=== PATIENT | female | born 1980 | race Caucasian/White ===

== ENCOUNTER 2018-08-09 18:13 | Emergency (ER) | payer MEDICARE, MEDICAID ==
--- NOTE | 2018-08-09 20:30 | RAD ---
RADIOGRAPH RIGHT KNEE 4 VIEWS: 08/09/18 HISTORY: 38-year-old female with persistent posttraumatic pain after fall four days ago. COMPARISON: 07/14/17. FINDINGS: There is a new or greater amount of edema throughout the subcutaneous soft tissues superficial to the patellar tendon and anterior to the proximal tibial metadiaphysis. There is edema in Hoffa's fat pad , new or greater than on the prior study. There is a small to moderate sized joint effusion. No fract ure or dislocation. No high grade DJD. IMPRESSION: 1. No fracture. 2. Anterior subcutaneous soft tissue edema. 3. Edema in Hoffa's fat pad and joint effusion. 4. No fracture. POS: [facility]
== END 2018-08-09 20:03 | disposition home or self-care (01) ==
LOC: SCSER 18:13
DX: S80.01XA Contusion of right knee, initial encounter (principal); M25.461 Effusion, right knee; I10 Essential (primary) hypertension; Z79.899 Other long term (current) drug therapy; W18.30XA Fall on same level, unspecified, initial encounter

== ENCOUNTER 2018-11-27 09:42 | Outpatient (CLI) | payer MEDICARE, MEDICAID ==
--- NOTE | 2018-11-27 12:33 | ULT ---
LEFT BREAST ULTRASOUND: HISTORY: Exam is performed to follow up abnormal mammographic finding at 12 o'clock, in the retroareolar regio n. FINDINGS: The left breast is evaluated in the central retroareolar region. There is a solid, circumscribed, sl ightly hypoechoic mass, which measures 0.7 x 1.0 x 1.0 cm in size, in the 12 o'clock retroareolar reg ion, corresponding to the mammographic area of concern. 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 Findings were discussed with the patient and with the patient's mother in regard to either performing a biopsy or doing six month short-term surveillance, and the agreement was to perform six month surv eillance. IMPRESSION: BI-RADS category 3-Probably benign findings. 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 Six-month follow-up left breast ultrasound is recommended. At one year, I would ramón mmend obtaining a bilateral mammogram, as well as a left breast ultrasound. POS: OFF
== END 2018-11-27 09:43 | disposition home or self-care (01) ==
LOC: BICMAMMO 09:42
PROVIDERS: ATTEND Family Medicine
DX: N64.4 Mastodynia (principal); N63.42 Unspecified lump in left breast, subareolar; Z80.3 Family history of malignant neoplasm of breast
CPT/HCPCS: 76642; 77066; G0279

== ENCOUNTER 2019-05-30 16:13 | Emergency (ER) | payer MEDICARE, MEDICAID ==
[2019-05-30 16:54] LABS: BHCG - Serum Negative (NEGATIVE); Pregs Control Background? CLEAR/WHITE (CLR/WHITE); Pregs Control Bar Appear? YES (CONTROL BAR)
[2019-05-30 16:59] LABS: Eosinophils 2 % (0-10); Hemoglobin 12.9 g/dL (12.0-16.0); Lymphocytes 35 % (21-51); MDiff Complete? YES; Mean Corpuscular HGB CONC 33.8 g/dL (32.0-36.0); Mean Corpuscular Hemoglobin 27.4 pg (27.0-31.0); Mean Corpuscular Volume 81.2 fL (78.0-98.0); Monocytes 5 % (0-10); Neutrophil 58 % (42-75); Platelet Count 341 thou/uL (130-400); Platelet Morphology Comment Appears Adequate; RBC Distribution Width 13.3 % (11.5-14.5)
[2019-05-30 17:04] LABS: ALT (SGPT) 22 U/L (8-55); AST (SGOT) 21 U/L (5-34); Albumin 3.6 g/dL (3.5-5.0); Alkaline Phosphatase 56 U/L (40-150); Anion Gap 13 mmol/L (10-20); BUN (Urea Nitrogen) 18 mg/dL (7.0-18.7); Bilirubin, Total 0.3 mg/dL (0.2-1.2); Calc. Creatinine Clearance 0 mL/min (70-130); Calcium 8.9 mg/dL (7.8-10.44); Carbon Dioxide 27 mmol/L (22-29); Chloride 107 mmol/L (98-107); Estimated GFR-MDRD 72; Globulin 3.3 g/dL (2.4-3.5); Glucose 90 mg/dL (70-105); Lipase 37 U/L (8-78); Protein, Total 6.9 g/dL (6.0-8.3); Sodium 144 mmol/L (136-145)
[2019-05-30 17:08] LABS: Potassium 2.8 mmol/L (3.5-5.1)
== END 2019-05-30 17:25 | disposition home or self-care (01) ==
LOC: SCSER 16:13
DX: R10.10 Upper abdominal pain, unspecified (principal); E87.6 Hypokalemia; I10 Essential (primary) hypertension; F41.9 Anxiety disorder, unspecified; F32.9 Major depressive disorder, single episode, unspecified; Z79.899 Other long term (current) drug therapy
CPT/HCPCS: 36415; 80053; 83690; 84703; 85025; 99284

== ENCOUNTER 2019-06-12 12:30 | Outpatient (CLI) | payer MEDICARE, MEDICAID ==
--- NOTE | 2019-06-12 14:58 | ULT ---
ULTRASOUND LEFT BREAST: Date: 06/12/19 HISTORY: 6 month follow-up breast mass. COMPARISON: Ultrasound and mammogram dated 11/27/18. FINDINGS: Targeted left breast ultrasound was obtained. Unchanged appearance of the wider than tall hypoechoic mass measuring up to 9 mm in left breast, 12 o'clock, posterior depth. IMPRESSION: Unchanged mass left breast, wider than tall, hypoechoic. As per the prior recommendations, a follow-u p ultrasound and bilateral mammogram in 6 months recommended. POS: OFF
== END 2019-06-12 12:31 | disposition home or self-care (01) ==
LOC: BICULT 12:30
PROVIDERS: ATTEND Family Medicine
DX: R92.8 Other abnormal and inconclusive findings on diagnostic imaging of breast (principal); N63.22 Unspecified lump in the left breast, upper inner quadrant

== ENCOUNTER 2019-12-18 14:18 | Outpatient (CLI) | payer MEDICARE, MEDICAID ==
--- NOTE | 2019-12-25 13:25 | MMO ---
Bilateral MAMMO Bilat Diag [facility]. CLINICAL HISTORY: Patient is 39 years old and is seen for diagnostic exam. The patient has the following family history of breast cancer: maternal grandmother, malignant (generic), LUNG. The patient has no personal history of cancer. VIEWS: The views performed were: bilateral craniocaudal with tomosynthesis; bilateral mediolateral oblique with tomosynthesis; and bilateral mediolateral with tomosynthesis. FILMS COMPARED: The present examination has been compared to prior imaging studies performed at [facility] on 11/27/2018 and 06/12/2019. This study has been interpreted with the assistance of computer-aided detection. MAMMOGRAM FINDINGS: The breasts are heterogeneously dense, which could obscure a lesion on mammography. There is a stable equal density, oval mass with circumscribed margins seen in the left breast at 12 o'clock. In the right breast, there are no suspicious masses, calcifications or areas of architectural distortion. IMPRESSION: STABLE MASS IN THE LEFT BREAST IS PROBABLY BENIGN. FOLLOW UP IN ONE YEAR RECOMMENDED. THE RESULTS OF THIS EXAM WERE SENT TO THE PATIENT. ACR BI-RADS Category 3 - Probably benign finding - short interval follow-up suggested. [facility] will notify the patient of the need for additional imaging services. MAMMOGRAPHY NOTE: 1. A negative mammogram report should not delay a biopsy if a dominant of clinically suspicious mass is present. 2. Approximately 10% to 15% of breast cancers are not detected by mammography. 3. Adenosis and dense breasts may obscure an underlying neoplasm. Reported by: ROSE AGARWAL MD Electonically Signed: [id number]
== END 2019-12-18 14:19 | disposition home or self-care (01) ==
LOC: BICMAMMO 14:18
PROVIDERS: ATTEND Student in an Organized Health Care Education/Training Program
DX: R92.8 Other abnormal and inconclusive findings on diagnostic imaging of breast (principal); N63.22 Unspecified lump in the left breast, upper inner quadrant
CPT/HCPCS: 77066; G0279

== ENCOUNTER 2021-01-07 12:39 | Outpatient (CLI) | payer MEDICARE, MEDICAID ==
--- NOTE | 2021-01-07 13:52 | ULT ---
US Breast Limited Lt: 01/07/2021 12:00 AM CLINICAL INDICATION: 12:00 left breast mass. COMPARISON: Mammogram 01/07/2021; ultrasound 06/12/2019, mammogram and ultrasound 11/27/2018 TECHNIQUE: Multiplanar grayscale and color Doppler images were obtained of the breast. FINDINGS: There is a stable well-circumscribed hypoechoic mass at the 12:00 position of the left breast approxi mately 4 cm from the nipple. This measures 1.0 cm in greatest dimension. No suspicious shadowing is seen. IMPRESSION: BI-RADS Category 2-benign findings. Patient can return to annual screening mammography.
--- NOTE | 2021-01-07 15:26 | MMO ---
Bilateral MAMMO Bilat Diag [facility]. CLINICAL HISTORY: Patient is 40 years old and is seen for diagnostic exam. The patient has the following family history of breast cancer: maternal grandmother, malignant (generic), LUNG. The patient has no personal history of cancer. VIEWS: The views performed were: bilateral craniocaudal with tomosynthesis; bilateral mediolateral oblique with tomosynthesis; and bilateral mediolateral with tomosynthesis. FILMS COMPARED: The present examination has been compared to prior imaging studies performed at [facility] on 11/27/2018, 06/12/2019, 12/18/2019 and 01/07/2021. This study has been interpreted with the assistance of computer-aided detection. MAMMOGRAM FINDINGS: The breasts are heterogeneously dense, which could obscure a lesion on mammography. There is a stable oval mass with circumscribed margins seen in the central region of the left breast. There are no suspicious masses, suspicious calcifications, or new areas of architectural distortion. IMPRESSION: THERE IS NO MAMMOGRAPHIC EVIDENCE OF MALIGNANCY. A ROUTINE FOLLOW-UP MAMMOGRAM IN 1 YEAR IS RECOMMENDED. THE RESULTS OF THIS EXAM WERE SENT TO THE PATIENT. ACR BI-RADS Category 2 - Benign finding MAMMOGRAPHY NOTE: 1. A negative mammogram report should not delay a biopsy if a dominant of clinically suspicious mass is present. 2. Approximately 10% to 15% of breast cancers are not detected by mammography. 3. Adenosis and dense breasts may obscure an underlying neoplasm. Reported by: GRANT PARNELL MD Electonically Signed: [id number]
== END 2021-01-07 12:40 | disposition home or self-care (01) ==
LOC: BICMAMMO 12:39
PROVIDERS: ATTEND Family Medicine
DX: N63.20 Unspecified lump in the left breast, unspecified quadrant (principal); R92.8 Other abnormal and inconclusive findings on diagnostic imaging of breast
CPT/HCPCS: 76642; 77066; G0279

== ENCOUNTER 2022-01-09 11:43 | Outpatient (CLI) | payer MEDICARE, MEDICAID | END 2022-01-09 11:44 | disposition home or self-care (01) | LOC: BICMAMMO 11:43 | PROVIDERS: ATTEND Family Medicine | DX: Z12.31 Encounter for screening mammogram for malignant neoplasm of breast (principal); Z80.3 Family history of malignant neoplasm of breast | CPT/HCPCS: 77063; 77067 ==

== ENCOUNTER 2023-01-15 11:39 | Outpatient (CLI) | payer MEDICARE, MEDICAID | END 2023-01-15 11:40 | disposition home or self-care (01) | LOC: BICMAMMO 11:39 | PROVIDERS: ATTEND Student in an Organized Health Care Education/Training Program | DX: Z12.31 Encounter for screening mammogram for malignant neoplasm of breast (principal); N63.10 Unspecified lump in the right breast, unspecified quadrant; N63.20 Unspecified lump in the left breast, unspecified quadrant; Z85.42 Personal history of malignant neoplasm of other parts of uterus; Z80.3 Family history of malignant neoplasm of breast | CPT/HCPCS: 77063; 77067 ==

== ENCOUNTER 2023-03-22 14:35 | Day surgery (SDC) | payer MEDICARE, MEDICAID ==
[2023-03-22] MEDS ORDERED: Acetaminophen 500 MG TAB PO PRN (15:59)
[2023-03-22] MEDS ORDERED: diphenhydrAMINE 25 MG CAP PO PRN (16:00)
[2023-03-22 22:44] VITALS: BP 108/57; TEMP 98.5
[2023-03-22 23:02] LABS: %Basophils 8.3 % (0.0-1.0); %Eosinophils 4.2 % (0.0-10.0); %Lymphocytes 87.5 % (21.0-51.0); Hemoglobin 8.2 g/dL (12.0-16.0); Manual Diff?? YES; Mean Corpuscular HGB CONC 32.5 g/dL (32.0-36.0); Mean Corpuscular Hemoglobin 29.2 pg (27.0-31.0); Mean Corpuscular Volume 89.7 fl (78.0-98.0); Mean Platelet Volume 9.6 fL (7.4-10.4); RBC Distribution Width 18.6 % (11.5-14.5); Red Blood Cell (RBC) Count 2.81 mill/uL (4.20-5.40); White Blood Cell (WBC) Count 0.2 10x3/uL (4.8-10.8)
[2023-03-22 23:48] LABS: Eosinophils 4 % (0-10); Large Platelets 2.1 % (0-5); Lymphocytes 94 % (21-51); Platelet Morphology Comment Platelets Decreased
[2023-03-23 08:07] LABS: Platelet Count 43 10x3/uL (130-400)
== END 2023-03-22 22:59 | disposition home or self-care (01) ==
LOC: ONC/OP 14:35 → MSONC 14:55 → ONC/OP 22:59
PROVIDERS: ATTEND Internal Medicine
PROC: 30233N1 Transfusion of Nonautologous Red Blood Cells into Peripheral Vein, Percutaneous Approach (ICD-10-PCS; principal; 2023-03-22)
PROC: 30233R1 Transfusion of Nonautologous Platelets into Peripheral Vein, Percutaneous Approach (ICD-10-PCS; 2023-03-22)
DX: D64.9 Anemia, unspecified (principal); D69.6 Thrombocytopenia, unspecified; Z91.048 Other nonmedicinal substance allergy status
CPT/HCPCS: 36430; 85025; 86850; 86900; 86901; 86920; P9035; P9040; 36415; J1642

== ENCOUNTER 2023-03-26 14:23 | Day surgery (SDC) | payer MEDICARE, MEDICAID ==
[2023-03-26] MEDS ORDERED: Acetaminophen 500 MG TAB PO SCH (15:00)
[2023-03-26] MEDS ORDERED: diphenhydrAMINE 25 MG CAP PO SCH (15:00)
[2023-03-26] MEDS ORDERED: Acetaminophen 500 MG TAB ONE (15:04)
[2023-03-26 16:04] VITALS: BP 112/58; TEMP 98.5
== END 2023-03-26 16:19 | disposition home or self-care (01) ==
LOC: ONC/OP 14:23
PROVIDERS: ATTEND Internal Medicine
PROC: 30233R1 Transfusion of Nonautologous Platelets into Peripheral Vein, Percutaneous Approach (ICD-10-PCS; principal; 2023-03-26)
DX: D69.6 Thrombocytopenia, unspecified (principal); D64.9 Anemia, unspecified; Z91.048 Other nonmedicinal substance allergy status
CPT/HCPCS: 36430; 86850; 86900; 86901; P9035; J1642

== ENCOUNTER 2023-05-14 11:10 | Day surgery (SDC) | payer MEDICARE, MEDICAID ==
[2023-05-14] MEDS ORDERED: diphenhydrAMINE 25 MG CAP ONE (12:10)
[2023-05-14] MEDS ORDERED: Acetaminophen 500 MG TAB ONE (12:10)
[2023-05-14] MEDS ORDERED: diphenhydrAMINE 25 MG CAP PO SCH (12:15)
[2023-05-14] MEDS ORDERED: Acetaminophen 500 MG TAB PO SCH (12:15)
[2023-05-14 14:05] VITALS: BP 105/59; TEMP 98
== END 2023-05-14 13:35 | disposition home or self-care (01) ==
LOC: ONC/OP 11:10
PROVIDERS: ATTEND Internal Medicine
DX: D64.9 Anemia, unspecified (principal); D69.6 Thrombocytopenia, unspecified
CPT/HCPCS: 36430; 86850; 86900; 86901; P9035; J1642

== ENCOUNTER 2023-06-06 09:42 | Day surgery (SDC) | payer MEDICARE, MEDICAID ==
[2023-06-06] MEDS ORDERED: diphenhydrAMINE 25 MG CAP PO SCH (10:00)
[2023-06-06] MEDS ORDERED: Acetaminophen 500 MG TAB PO SCH (10:00)
[2023-06-06] MEDS ORDERED: Acetaminophen 500 MG TAB ONE (10:18)
[2023-06-06] MEDS ORDERED: diphenhydrAMINE 25 MG CAP ONE (10:18)
[2023-06-06 16:32] VITALS: BP 118/67; TEMP 97.9
== END 2023-06-06 16:43 | disposition home or self-care (01) ==
LOC: ONC/OP 09:42
PROVIDERS: ATTEND Internal Medicine
DX: D64.9 Anemia, unspecified (principal); D69.59 Other secondary thrombocytopenia
CPT/HCPCS: 36430; 86850; 86900; 86901; 86920; P9016; P9035; J1642

== ENCOUNTER 2023-06-08 09:36 | Day surgery (SDC) | payer MEDICARE, MEDICAID ==
[2023-06-08] MEDS ORDERED: Acetaminophen 500 MG TAB PO SCH (10:00)
[2023-06-08] MEDS ORDERED: diphenhydrAMINE 25 MG CAP PO SCH (10:00)
[2023-06-08] MEDS ORDERED: Acetaminophen 500 MG TAB ONE (10:09)
[2023-06-08 11:14] VITALS: TEMP 98.1
[2023-06-08 11:15] VITALS: BP 102/60
== END 2023-06-08 11:09 | disposition home or self-care (01) ==
LOC: ONC/OP 09:36
PROVIDERS: ATTEND Internal Medicine
DX: D64.9 Anemia, unspecified (principal); D69.59 Other secondary thrombocytopenia
CPT/HCPCS: 36430; 86850; 86900; 86901; P9035

== ENCOUNTER 2023-06-11 12:09 | Day surgery (SDC) | payer MEDICARE, MEDICAID ==
[2023-06-11] MEDS ORDERED: diphenhydrAMINE 25 MG CAP PO SCH (12:30)
[2023-06-11] MEDS ORDERED: Acetaminophen 500 MG TAB PO SCH (12:30)
[2023-06-11] MEDS ORDERED: Acetaminophen 500 MG TAB ONE (12:46)
[2023-06-11 16:15] VITALS: BP 112/62; TEMP 98
== END 2023-06-11 16:08 | disposition home or self-care (01) ==
LOC: ONC/OP 12:09
PROVIDERS: ATTEND Internal Medicine
DX: D64.9 Anemia, unspecified (principal); D69.6 Thrombocytopenia, unspecified
CPT/HCPCS: 36430; 86850; 86900; 86901; 86920; P9016; J1642

== ENCOUNTER 2024-03-24 11:43 | Outpatient (CLI) | payer MEDICARE, MEDICAID | END 2024-03-24 11:44 | disposition home or self-care (01) | LOC: BICMAMMO 11:43 | PROVIDERS: ATTEND Student in an Organized Health Care Education/Training Program | DX: Z12.31 Encounter for screening mammogram for malignant neoplasm of breast (principal); Z80.3 Family history of malignant neoplasm of breast; Z85.42 Personal history of malignant neoplasm of other parts of uterus | CPT/HCPCS: 77063; 77067 ==

== ENCOUNTER 2024-04-10 12:49 | Outpatient (CLI) | payer MEDICARE, MEDICAID | END 2024-04-10 12:50 | disposition home or self-care (01) | LOC: BICMAMMO 12:49 | PROVIDERS: ATTEND Student in an Organized Health Care Education/Training Program | DX: N64.89 Other specified disorders of breast (principal) | CPT/HCPCS: 77065; G0279 ==

== ENCOUNTER 2025-06-05 12:53 | Outpatient (CLI) | payer MEDICARE, MEDICAID | END 2025-06-05 12:54 | disposition home or self-care (01) | LOC: SCSMRI 12:53 | PROVIDERS: ATTEND Orthopaedic Surgery | DX: S53.135A Medial dislocation of left ulnohumeral joint, initial encounter (principal) ==

== ENCOUNTER 2025-06-18 07:03 | Observation (INO) | payer MEDICARE, MEDICAID ==
[2025-06-15 13:36] VITALS: BMI 42.0
[2025-06-18] MEDS ORDERED: Tranexamic Acid 1,000 MG in Sodium Chloride 0.9% 250 ML 250 ML IVPB SCH (09:45)
[2025-06-18] MEDS ORDERED: PROPOFOL 20 ML ONE (09:53)
[2025-06-18] MEDS ORDERED: CEFAZOLIN 2 GM VIAL ONE (09:58)
[2025-06-18] MEDS ORDERED: CEFAZOLIN 1 GM VIAL ONE (10:25)
[2025-06-18] MEDS ORDERED: Ondansetron PF 4 MG/2 ML Vial ONE (12:57)
[2025-06-18] MEDS ORDERED: Ketorolac Tromethamine 30 MG (1 mL) VIAL ONE (13:02)
[2025-06-18] MEDS ORDERED: Ondansetron PF 4 MG/2 ML Vial IVP PRN (14:12)
[2025-06-18] MEDS ORDERED: Acetaminophen 325 MG TAB PO PRN (14:12)
[2025-06-18] MEDS ORDERED: Milk Of Magnesia 30 ML UDCUP PO PRN (14:12)
[2025-06-18] MEDS ORDERED: Bisacodyl 10 MG SUPP PR PRN (14:12)
[2025-06-18] MEDS ORDERED: Ropivacaine 0.5% HCl/PF (150 MG/30 ML VIAL) ONE (14:30)
[2025-06-18] MEDS: Ketorolac Tromethamine 30 MG (1 mL) VIAL IVP SCH (19:07)
[2025-06-18] MEDS: HYDROcodone/Acetaminophen 10/325 mg Tablet PO PRN (19:53)
[2025-06-19 05:26] LABS: #Basophils Less than 0.03 10x3/uL (0.0-0.2); #Eosinophils Less than 0.03 10x3/uL (0.0-0.7); #Monocytes 0.63 10x3/uL (0.11-0.59); #Neutrophils 8.20 10x3/uL (1.40-6.50); %Basophils 0.2 % (0.0-1.0); %Eosinophils 0.0 % (0.0-10.0); %Lymphocytes 7.9 % (21.0-51.0); %Monocytes 6.5 % (0.0-10.0); %Neutrophils 84.7 % (42.0-75.0); Hematocrit 38.0 % (36.0-47.0); Hemoglobin 12.5 g/dL (12.0-16.0); Mean Corpuscular Hemoglobin 29.6 pg (27.0-31.0); Mean Corpuscular Volume 90.0 fL (78.0-98.0); Platelet Count 189 10x3/uL (130-400); Red Blood Cell (RBC) Count 4.22 mill/uL (4.20-5.40); White Blood Cell (WBC) Count 9.68 10x3/uL (4.8-10.8)
[2025-06-19 06:05] LABS: ALT (SGPT) 32 U/L (Less than 34); AST (SGOT) 27 U/L (11-34); Albumin 3.3 g/dL (3.1-4.5); Alkaline Phosphatase 90 U/L (40-110); Anion Gap 13 mmol/L (10-20); BUN (Urea Nitrogen) 18 mg/dL (7.0-18.7); Bilirubin, Total 0.3 mg/dL (0.3-1.2); Calc. Creatinine Clearance 145 mL/min (70-130); Calcium 8.1 mg/dL (7.8-10.44); Carbon Dioxide 23 mmol/L (22-29); Chloride 107 mmol/L (98-107); Globulin 2.7 g/dL (2.4-3.5); Glucose 149 mg/dL (70-105); Potassium 3.8 mmol/L (3.5-5.1); Sodium 139 mmol/L (136-145)
[2025-06-19 09:38] VITALS: TEMP 97.2
[2025-06-19] MEDS: HYDROcodone/Acetaminophen 10/325 mg Tablet PO PRN (11:05)
[2025-06-19 11:27] VITALS: BP 119/73
== END 2025-06-19 11:15 | disposition home or self-care (01) ==
LOC: SDC 07:03 → SURG A 15:28
PROVIDERS: ADMIT Orthopaedic Surgery; ATTEND Orthopaedic Surgery
PROC: 0RSM0ZZ Reposition Left Elbow Joint, Open Approach (ICD-10-PCS; principal; 2025-06-18)
PROC: 01X40Z4 Transfer Ulnar Nerve to Ulnar Nerve, Open Approach (ICD-10-PCS; principal; 2025-06-18)
PROC: 0MQ40ZZ Repair Left Elbow Bursa and Ligament, Open Approach (ICD-10-PCS; principal; 2025-06-18)
DX: S53.135A Medial dislocation of left ulnohumeral joint, initial encounter (principal); S53.22XA Traumatic rupture of left radial collateral ligament, initial encounter; S53.32XA Traumatic rupture of left ulnar collateral ligament, initial encounter; M89.8X9 Other specified disorders of bone, unspecified site; G43.909 Migraine, unspecified, not intractable, without status migrainosus; F32.A Depression, unspecified; Z91.048 Other nonmedicinal substance allergy status; Z79.899 Other long term (current) drug therapy
CPT/HCPCS: 24343; 24345; 24615; 64415; 64718; 73080; 80053; 85025; 97535; J0166; J0690; J1100; J1885 ×2; J2405; J2704; J2795; J3010

== ENCOUNTER 2025-11-09 12:15 | Outpatient (CLI) | payer MEDICARE, OTHER ==
[2025-11-09 13:01] LABS: #Basophils 0.04 10x3/uL (0.0-0.2); #Eosinophils 0.17 10x3/uL (0.0-0.7); #Monocytes 0.33 10x3/uL (0.11-0.59); #Neutrophils 3.23 10x3/uL (1.40-6.50); %Basophils 0.8 % (0.0-1.0); %Eosinophils 3.5 % (0.0-10.0); %Lymphocytes 22.2 % (21.0-51.0); %Monocytes 6.7 % (0.0-10.0); %Neutrophils 65.6 % (42.0-75.0); Hematocrit 45.5 % (36.0-47.0); Hemoglobin 14.9 g/dL (12.0-16.0); Mean Corpuscular Hemoglobin 29.0 pg (27.0-31.0); Mean Corpuscular Volume 88.5 fL (78.0-98.0); Platelet Count 186 10x3/uL (130-400); Red Blood Cell (RBC) Count 5.14 mill/uL (4.20-5.40); White Blood Cell (WBC) Count 4.92 10x3/uL (4.8-10.8)
[2025-11-09 13:25] LABS: ALT (SGPT) 40 U/L (Less than 34); AST (SGOT) 33 U/L (11-34); Albumin 3.9 g/dL (3.1-4.5); Alkaline Phosphatase 118 U/L (40-110); Anion Gap 14 mmol/L (10-20); BUN (Urea Nitrogen) 9 mg/dL (7.0-18.7); Bilirubin, Total 0.4 mg/dL (0.3-1.2); Calc. Creatinine Clearance 0 mL/min (70-130); Calcium 9.1 mg/dL (7.8-10.44); Carbon Dioxide 27 mmol/L (22-29); Chloride 107 mmol/L (98-107); Globulin 2.9 g/dL (2.4-3.5); Glucose 92 mg/dL (70-105); Potassium 3.9 mmol/L (3.5-5.1); Sodium 144 mmol/L (136-145)
== END 2025-11-09 12:16 | disposition home or self-care (01) ==
LOC: LABBT 12:15
PROVIDERS: ATTEND Orthopaedic Surgery
DX: Z01.812 Encounter for preprocedural laboratory examination (principal); M25.522 Pain in left elbow
CPT/HCPCS: 80053; 85025